=== PATIENT | male | born 1980 | race Caucasian/White ===

== ENCOUNTER 2019-02-15 11:59 | Day surgery (SDC) | payer BC ==
[~2019-02-15 11:59] MED LIST: BUPIVACAINE HCL 0.25% /EPINEPHRINE INJ/PF 30 ML SDV ONE; CEFAZOLIN 1 GM/D5W RTU 1 GM/50 ML RTUPB IV PRN; LACTATED RINGERS 1000 ML IV PRN; LIDOCAINE 0.5% INJ-PF (5 MG/ML) 50 ML SDV SUBCUT PRN
[2019-02-15] MEDS ORDERED: FENTANYL CITRATE INJ/PF 250 MCG/5 ML AMPULE ONE (12:19)
[2019-02-15] MEDS ORDERED: MIDAZOLAM 2 MG/2 ML INJ ONE (12:19)
[2019-02-15] MEDS ORDERED: PROPOFOL INJ 200 MG/20 ML VIAL IV ONE (12:20)
[2019-02-15] MEDS ORDERED: CEFAZOLIN 1 GM/D5W RTU 1 GM/50 ML RTUPB IV ONE (12:32)
[2019-02-15] MEDS ORDERED: DEXAMETHASONE SOD PHOSPHATE INJ 4 MG/1 ML VIAL ONE (13:49)
[2019-02-15] MEDS ORDERED: GLYCOPYRROLATE 1 MG/5 ML SYRINGE ONE (13:49)
[2019-02-15] MEDS ORDERED: KETOROLAC TROMETHAMINE 60 MG/2 ML SDV ONE (13:49)
[2019-02-15] MEDS ORDERED: NEOSTIGMINE METHYLSULFATE 10 MG/10 ML VIAL ONE (13:49)
[2019-02-15] MEDS ORDERED: ONDANSETRON HCL INJ/PF 4 MG/2 ML SDV ONE (13:49)
[2019-02-15] MEDS ORDERED: ROCURONIUM BROMIDE INJ 50 MG/5 ML VIAL IV ONE (13:49)
[2019-02-15] MEDS ORDERED: LIDOCAINE 2% INJ-PF (20 MG/ML) 2 ML AMPUL ONE (13:49)
--- NOTE | 2019-02-15 14:41 | Operative Report ---
Nonrecallable Operative Report DATE OF SURGERY: 02/15/19 PREOPERATIVE DIAGNOSIS: umbilical hernia POSTOPERATIVE DIAGNOSIS: umbilical hernia OPERATION: umbilical hernia repair SURGEON: LARRY DARNELL ANESTHESIA: GA TISSUE REMOVED OR ALTERED: none COMPLICATIONS: none ESTIMATED BLOOD LOSS: 2cc INTRAOPERATIVE FINDINGS: .5cm umb hernia, with incarcerated omentum PROCEDURE: see dication
[2019-02-15] MEDS ORDERED: OXYCODONE-ACETAMINOPHEN 5-325 MG TABLET PO PRN ×4 (14:43→15:40)
[2019-02-15] MEDS ORDERED: DIPHENHYDRAMINE HCL 50 MG/ML VIAL IV PRN (14:59)
[2019-02-15] MEDS ORDERED: MEPERIDINE HCL/PF INJ 25 MG/1 ML DISP.SYRIN IV PRN (14:59)
[2019-02-15] MEDS ORDERED: PROMETHAZINE HCL INJ 25 MG/1 ML VIAL IV PRN ×2 (14:59)
[2019-02-15] MEDS ORDERED: FENTANYL CITRATE INJ/PF 100 MCG/2 ML AMPUL IV PRN ×3 (14:59)
--- NOTE | 2019-02-15 15:37 | Discharge Summary ---
Discharge Summary (SDC) - Discharge Final Diagnosis: umbilical hernia Date of Surgery: 02/15/19 Discharge Date: 02/15/19 Condition: Good Referrals: DONNA FLORES PA-C [Primary Care Provider] - Discharge Activity: Activity As Tolerated, No Lifting Over 10 Pounds Report the Following to Your Physician Immediately: Shortness of Breath, Nausea, Vomiting, Increase in Pain, Fever over 101 Degrees - pt needs a f/u with me in 7-10 days
--- NOTE | 2019-02-15 16:35 | OPERATIVE REPORT E ---
Operative Report NAME: KEYSHAWN LEVY : 1980 AGE: 38Y DATE OF SURGERY: 02/15/2019 ROOM: PREOPERATIVE DIAGNOSIS: UMBILICAL HERNIA. POSTOPERATIVE DIAGNOSIS: UMBILICAL HERNIA. OPERATION: UMBILICAL HERNIA REPAIR. SURGEON: LARRY DARNELL M.D. CONTACT CENTER TEAM LEAD: Ivania Miguel PA-C, who was present for the entire procedure for help with wound retraction and wound closure. PROCEDURE: The patient was brought to the operating room, awake, alert, and in stable condition. Placed on the operating table in supine position and induced under general anesthesia, and intubated. The abdomen was prepped and draped in the usual sterile manner for the procedure. The patient had an umbilical hernia that was somewhat superior; therefore, a supraumbilical curvilinear incision was made in the umbilical crease. Dissection carried down through subcutaneous tissue with Bovie cautery. Once we dissected out through the subcutaneous tissue, we noted a hernia sac was incarcerated omentum. A small tongue of omentum was amputated with the Bovie cautery, and the sac was excised. Once this was accomplished, we then dissected out the umbilical stalk with a right angle clamp, and then out from the anterior abdominal fascia. This led us directly to the umbilical hernia defect, which was approximately 0.5 cm in diameter. We closed it with interrupted 0 Vicryl sutures placed in a horizontal mattress fashion. Once this was closed, we then tacked the umbilical stalk down to the anterior abdominal fascia with 2-0 Vicryl. Subcutaneous tissue was reapproximated with interrupted 3-0 Vicryl and skin was closed with intracuticular 4-0 Biosyn. Steri-Strips completed the procedure. Estimated blood loss was less than 5 mL. Sponge and needle counts correct x2. The patient was awakened in the operating room, extubated, and transferred to Recovery in stable condition. No complications. DICTATING PHYSICIAN: LARRY DARNELL M.D. [id number] Y#: [id number] ID: [id number] JOB#: [id number] ACCT: [id number] cc:LARRY DARNELL M.D. >
[2019-02-15 17:39] VITALS: BP 120/85
== END 2019-02-15 16:50 | disposition home or self-care (01) ==
LOC: OROUT 11:59
PROVIDERS: ATTEND Surgery
DX: K42.9 Umbilical hernia without obstruction or gangrene (principal); Z87.891 Personal history of nicotine dependence; J30.2 Other seasonal allergic rhinitis; Z79.899 Other long term (current) drug therapy
CPT/HCPCS: 49585; J2250; J0690; J3490 ×3; J1100; J1885; J3010; J2710; J2405; J2704; 750